=== PATIENT | male | born 1945 | race Caucasian/White ===

== ENCOUNTER 2017-03-01 10:07 | Emergency (ER) | payer MEDICARE, BC ==
[~2017-03-01 10:07] MED LIST: ACET500CAP PO; ATV.5 PO; C PAP; C5 PO; CIP5 PO; COREG3 PO; COUMADIN6 MG PO; DEMA20 PO; EYE OPH; FLOMAX4 PO; GLUCPH PO; IMDUR30 PO; KDUR20 PO; KLOR-CON M1010 MEQ PO; KLOR-CON M2020 MEQ PO; KLOR-CON20 MEQ PO; L20 PO; LEXAPRO10 PO; MICRO-K10 MEQ; MOBIC15 MG PO; MULTIVIT/MIN PO; NEUR100 PO; PCET PO; PRIN10 PO; REQUIP1 PO; SPIRO25 PO; T PO; TORSEMIDE PO; ULTRACET PO; ULTRAM50 PO; VYTORIN 10/20 T1 TAB PO; ZESTRIL10 MG PO; ZOCOR20 PO; [UNRECOGNIZED DRUG - OTHER] PO; [UNRECOGNIZED DRUG - OTHER] TOP
[2017-03-01 10:26] LABS: HEMATOCRIT 38.7 % (40.0-51.0); HEMOGLOBIN 13.2 g/dL (13.6-17.8); MANUAL DIFF YES %; MEAN CORPUS HGB CONC 34.1 g/dL (32.0-36.0); MEAN CORPUSCULAR VOLUME 96.8 fL (80-100); MEAN PLATELET VOLUME 10.3 fL (9.2-13.0); PLATELET COUNT 245 10/3/uL (150-400); RBC DISTRIBUTION WIDTH 14.2 % (12.0-16.0); WHITE BLOOD CELLS 9.2 10/3/uL (4.5-10.5)
[2017-03-01 10:34] LABS: INTERNATIONAL NORMAL RATI 3.4 UNITS (-); PARTIAL THROMBO TIME 37.4 SEC (22.5-37.2); PROTIME (NOT ORD) 33.9 SEC (12.0-14.5)
[2017-03-01 10:51] LABS: EOSINOPHILS 2 %; EOSINOPHILS ABSOLUTE (CALC) 0.18 10/3/uL (0.0-0.53); ER DIFF TAT 0 Hrs 29 Mins; LYMPHOCYTES 16 %; LYMPHOCYTES ABSOLUTE (CALC) 1.47 10/3/uL (0.67-4.30); MONOCYTES 8 %; MONOCYTES ABSOLUTE (CALC) 0.74 10/3/uL (0.21-1.20); NEUTROPHILS ABSOLUTE (CALC) 6.81 10/3/uL (2.02-8.40); PLATELET ESTIMATE ADQ (ADEQUATE); RBC MORPHOLOGY NORM (NORMAL); SEGMENTED NEUTROPHIL (0) 74 %; TOTAL NUCLEATED CELLS 100
[2017-03-01 10:59] LABS: CALCIUM, SERUM 8.9 MG/DL (8.5-10.4); CHLORIDE, SERUM 101 MMOL/L (96-112); CO2 (CARBON DIOXIDE) 32 MMOL/L (24-34); CREATININE 1.21 MG/DL (0.70-1.30); GFR AFRICAN AMERICAN 70 ML/MIN (>=60); GFR NON AFRICAN AMERICAN 60 ML/MIN (>=60); GLUCOSE, SERUM 115 MG/DL (60-99); POTASSIUM, SERUM 3.8 MMOL/L (3.5-5.3); SODIUM, SERUM 140 MMOL/L (135-148)
[2017-03-01 11:00] LABS: BUN (BLOOD UREA NITROGEN) 23 MG/DL (6-23); CHEST PAIN PROFILE TAT 0 Hrs 21 Mins; TROPONIN I 0.05 NG/ML (<0.05)
== END 2017-03-01 12:17 | disposition home or self-care (01) ==
LOC: ER 10:07
PROVIDERS: Emergency Medicine
DX: I12.9 Hypertensive chronic kidney disease with stage 1 through stage 4 chronic kidney disease, or unspecified chronic kidney disease (principal); I50.9 Heart failure, unspecified; Z95.0 Presence of cardiac pacemaker; Z79.01 Long term (current) use of anticoagulants; Z79.899 Other long term (current) drug therapy
CPT/HCPCS: 71010; 80048; 83735; 83880; 84484; 85025; 85610; 85730; 93005; 96374; 99285; J1940